=== PATIENT | male | born 1980 | race Caucasian/White ===

== ENCOUNTER 2018-12-25 20:58 | Emergency (ER) | payer OTHER | END 2018-12-25 23:04 | disposition left against medical advice (07) | LOC: ED 20:58 | DX: Z53.21 Procedure and treatment not carried out due to patient leaving prior to being seen by health care provider (principal) ==

== ENCOUNTER 2019-01-07 17:28 | Emergency (ER) | payer OTHER ==
[~2019-01-07] VITALS: Ht 172.7 cm; Wt 67.8 kg
[2019-01-07 17:42] VITALS: Ht 172.7 cm; Wt 67.8 kg
[2019-01-08 02:08] VITALS: BP 139/87
== END 2019-01-08 02:08 | disposition home or self-care (01) ==
LOC: ED 17:28
DX: N45.2 Orchitis (principal); K40.90 Unilateral inguinal hernia, without obstruction or gangrene, not specified as recurrent
CPT/HCPCS: 87491; 87591; J0696; J1885; Q0092

== ENCOUNTER 2019-03-15 17:55 | Emergency (ER) | payer OTHER ==
[~2019-03-15] VITALS: Ht 172.7 cm; Wt 68.5 kg
[2019-03-15 18:13] VITALS: Ht 172.7 cm; Wt 68.5 kg
[2019-03-15 19:44] VITALS: BP 136/88
== END 2019-03-15 19:30 | disposition home or self-care (01) ==
LOC: ED 17:55
DX: N45.1 Epididymitis (principal)

== ENCOUNTER 2019-04-03 16:39 | Emergency (ER) | payer OTHER ==
[~2019-04-03] VITALS: Ht 167.6 cm; Wt 69.4 kg
[2019-04-03 16:46] VITALS: Ht 167.6 cm; Wt 69.4 kg
[2019-04-03 18:38] VITALS: BP 130/61
== END 2019-04-03 18:53 | disposition home or self-care (01) ==
LOC: ED 16:39
DX: N45.1 Epididymitis (principal); Z98.890 Other specified postprocedural states
CPT/HCPCS: 87491; 87591

== ENCOUNTER 2019-04-04 18:33 | Emergency (ER) | payer OTHER ==
[~2019-04-04] VITALS: Ht 172.7 cm; Wt 70.8 kg
[2019-04-04 18:36] VITALS: Ht 172.7 cm; Wt 70.8 kg
[2019-04-04 19:49] VITALS: BP 139/91
== END 2019-04-04 19:50 | disposition home or self-care (01) ==
LOC: ED 18:33
DX: N45.1 Epididymitis (principal); Z98.890 Other specified postprocedural states

== ENCOUNTER 2019-05-21 13:10 | Emergency (ER) | payer OTHER ==
[~2019-05-21] VITALS: Ht 172.7 cm; Wt 65.8 kg
[2019-05-21 13:31] VITALS: Ht 172.7 cm; Wt 65.8 kg
[2019-05-21 15:24] VITALS: BP 140/86
== END 2019-05-21 15:24 | disposition home or self-care (01) ==
LOC: ED 13:10
DX: N45.1 Epididymitis (principal)
CPT/HCPCS: 87491; 87591

== ENCOUNTER 2019-06-29 23:43 | Emergency (ER) | payer OTHER, MEDICAID ==
[~2019-06-29] VITALS: Ht 172.7 cm; Wt 63.5 kg
[2019-06-29 23:56] VITALS: Ht 172.7 cm; Wt 63.5 kg
[2019-06-30 00:45] VITALS: BP 129/84
== END 2019-06-30 00:45 | disposition home or self-care (01) ==
LOC: ED 23:43
DX: B35.3 Tinea pedis (principal); L03.032 Cellulitis of left toe; Z98.890 Other specified postprocedural states

== ENCOUNTER 2019-07-08 00:45 | Emergency (ER) | payer OTHER ==
[~2019-07-08] VITALS: Ht 172.7 cm; Wt 63.7 kg
[2019-07-08 01:01] VITALS: Ht 172.7 cm; Wt 63.7 kg
[2019-07-08 03:47] VITALS: BP 126/89
== END 2019-07-08 03:45 | disposition home or self-care (01) ==
LOC: ED 00:45
DX: L03.032 Cellulitis of left toe (principal)
CPT/HCPCS: J1885

== ENCOUNTER 2019-07-20 17:23 | Emergency (ER) | payer OTHER ==
[~2019-07-20] VITALS: Ht 172.7 cm; Wt 64.4 kg
[2019-07-20 17:51] VITALS: Ht 172.7 cm; Wt 64.4 kg
[2019-07-20 22:08] VITALS: BP 136/70
== END 2019-07-20 22:08 | disposition home or self-care (01) ==
LOC: ED 17:23
DX: S92.315A Nondisplaced fracture of first metatarsal bone, left foot, initial encounter for closed fracture (principal); L03.116 Cellulitis of left lower limb; W21.89XA Striking against or struck by other sports equipment, initial encounter; Y93.89 Activity, other specified; Y92.89 Other specified places as the place of occurrence of the external cause; Y99.8 Other external cause status
CPT/HCPCS: Q0092